=== PATIENT | male | born 1985 | race Caucasian/White ===

== ENCOUNTER 2016-07-03 20:10 | Emergency (ER) | payer BC ==
[2016-07-03 21:00] VITALS: BP 135/84
--- NOTE | 2016-07-03 21:54 | UC ---
Throat Pain/Nasal Lucas HPI - HPI Summary HPI Summary: Pt c/o cough , generalized malaise, fever, chills, and sore throat X 3 weeks. Pt did not get a flu vaccine this year. - History of Current Complaint Chief Complaint: UCGeneralIllness Stated Complaint: CONGESTION/EAR PAIN/SINUS Time Seen by Provider: 07/03/16 21:30 Hx Obtained From: Patient Onset/Duration: Gradual Onset, Lasting Weeks - 3 weeks Severity: Mild Associated Signs & Symptoms: Positive: Dysphagia, Fever - Epiglottits Risk Factors Epiglottis Risk Factors: Negative - Allergies/Home Medications Allergies/Adverse Reactions: Allergies Allergy/AdvReac Type Severity Reaction Status Date / Time No Known Allergies Allergy Verified 07/03/16 20:54 Home Medications: Home Medications [id number] W/ APAP [Tylenol Cold & Flu Severe [id number] mg] 2 tab PO Q4HR PRN 07/03/16 [History Confirmed 07/03/16] PMH/Surg Hx/FS Hx/Imm Hx Previously Healthy: Yes - Surgical History Surgical History: None - Family History Known Family History: Positive: Other - positive for FMH URI - Social History 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 Alcohol Use: Occasionally Substance Use Type: None Smoking Status (MU): Never Smoked Tobacco Household Exposure Type: Cigars - Immunization History Most Recent Influenza Vaccination: Not UTD Review of Systems Constitutional: Fever, Chills, Fatigue Skin: Negative Eyes: Negative ENT: Sore Throat Respiratory: Cough Cardiovascular: Negative Gastrointestinal: Negative Genitourinary: Negative Motor: Negative Neurovascular: Negative Musculoskeletal: Myalgia Neurological: Negative Psychological: Negative All Other Systems Reviewed And Are Negative: Yes Physical Exam Triage Information Reviewed: Yes Appearance: Well-Appearing Vital Signs: Initial Vital Signs Temp 100.0 F 07/03/16 20:55 Pulse 80 07/03/16 20:55 Resp 18 07/03/16 20:55 BP 135/84 07/03/16 20:55 Pulse Ox 98 07/03/16 20:55 Vital Signs Reviewed: Yes Eye Exam: Normal ENT Exam: Other ENT: Positive: Tonsillar swelling, Tonsillar exudate Neck exam: Normal Respiratory Exam: Normal Cardiovascular Exam: Normal Musculoskeletal Exam: Normal Neurological Exam: Normal Psychological Exam: Normal Skin Exam: Normal Throat Pain/Nasal Course/Dx - Differential Dx/Diagnosis Differential Diagnosis/HQI/PQRI: Influenza, Tonsillitis, URI Provider Diagnoses: tonsillitis Discharge - Discharge Plan Condition: Stable Disposition: HOME Prescriptions: Penicillin VK TAB 500 MG(NF) [Penicillin VK 500 mg Tab(NF)] 500 mg PO Q8HR #30 tab Patient Education Materials: Tonsillitis (ED) Referrals: [facility] [Outside] - If Needed No Primary Care Phys,NOPCP [Primary Care Provider] - Additional Instructions: Please follow up with your PCP or return to clinic as needed.
[2016-07-03] MEDS ORDERED: Penicillin VK LIQ* 250 MG/5 ML BTL PO ONE (21:59)
[2016-07-03] MEDS ORDERED: Penicillin VK TAB* 250 MG PO ONE (22:05)
== END 2016-07-03 22:11 | disposition home or self-care (01) ==
LOC: UCCORT 20:10
DX: J03.90 Acute tonsillitis, unspecified (principal); Z77.22 Contact with and (suspected) exposure to environmental tobacco smoke (acute) (chronic)
CPT/HCPCS: 87651; 99202; A9270-GY; G0463

== ENCOUNTER 2017-11-16 15:49 | Emergency (ER) | payer BC ==
[2017-11-16 16:11] VITALS: BP 132/74
--- NOTE | 2017-11-16 16:31 | UC ---
Ear Complaint HPI - HPI Summary HPI Summary: 32 year old male presents with onset of fever, chills, general malaise, and body aches 3 days ago. Gradually developed nasal congestion, nasal discharge, post-nasal drip, and sore throat. States fever and chills subsided but today developed left ear pain and fullness. Denies CP, SOB, abdominal pain, nausea, vomiting, or diarrhea. - History of Current Complaint Chief Complaint: UCGeneralIllness Stated Complaint: CONGESTION/EAR COMPLAINT Time Seen by Provider: 11/16/17 15:59 Hx Obtained From: Patient Onset/Duration: Gradual Onset, Lasting Days - 3 Severity Initially: Mild Severity Currently: Moderate Pain Intensity: 5 Aggravating Factors: Nothing Alleviating Factors: Nothing - Allergies/Home Medications Allergies/Adverse Reactions: Allergies Allergy/AdvReac Type Severity Reaction Status Date / Time No Known Allergies Allergy Verified 11/16/17 16:12 PMH/Surg Hx/FS Hx/Imm Hx Previously Healthy: Yes - Surgical History Surgical History: Yes - Tonsilectomy age 22 - Family History Known Family History: Positive: Other - noncontributory - Social History Occupation: Employed Full-time Lives: With Family Alcohol Use: Occasionally Substance Use Type: None Smoking Status (MU): Never Smoked Tobacco Household Exposure Type: Cigars - Immunization History Most Recent Influenza Vaccination: Not UTD Review of Systems Constitutional: Fever, Chills, Fatigue Skin: Negative Eyes: Negative ENT: Sore Throat, Ear Ache, Nasal Discharge, Sinus Congestion, Sinus Pain/ Tenderness Cardiovascular: Negative Gastrointestinal: Negative Is Patient Immunocompromised?: No All Other Systems Reviewed And Are Negative: Yes Physical Exam Triage Information Reviewed: Yes Appearance: Well-Appearing, No Pain Distress, Well-Nourished Vital Signs: Initial Vital Signs Temp 97.8 F 11/16/17 16:07 Pulse 63 11/16/17 16:07 Resp 16 11/16/17 16:07 BP 132/74 11/16/17 16:07 Pulse Ox 99 11/16/17 16:07 Eyes: Positive: Conjunctiva Clear ENT: Positive: Pharyngeal erythema - Mild with post-nasal drainage, Nasal congestion, Nasal drainage, TM red - Left with moderate effussion, Uvula midline , Other - Tonsils surgically absent Neck: Positive: Supple, Nontender, No Lymphadenopathy Respiratory: Positive: Lungs clear, Normal breath sounds, No respiratory distress Cardiovascular: Positive: RRR, No Murmur Skin Exam: Normal Ear Complaint Course/Dx - Course Course Of Treatment: 32 year old male with onset of URI symptoms 3 days ago who developed left ear pain and fullness today. Exam revealed left otitis media with effusion. Will treat with amoxicillin 875 mg BID x 10 day, supportive care including rest, fluids, nasal rinses, fluticasone nasal spray, OTC decongestant and pain medication. Patient verbalizes understanding and agrees with POC. - Differential Dx/Diagnosis Provider Diagnoses: Left otitis media, URI Discharge - Sign-Out/Discharge Documenting (check all that apply): Patient Departure - Discharge Plan Condition: Stable Disposition: HOME Prescriptions: Amoxicillin PO (*) [Amoxicillin 875 MG (*)] 875 mg PO BID #20 tab Fluticasone NASAL SPRAY 50MCG* [Flonase NASAL SPRAY 50MCG*] 2 spray BOTH NARES DAILY #1 btl Patient Education Materials: Ear Infection (ED), Upper Respiratory Infection ( ED) Referrals: No Primary Care Phys,NOPCP [Primary Care Provider] - Additional Instructions: Start amoxicillin 875 mg every 12 hours for 10 days for the ear infection. Take with food to help reduce upset stomach. Be sure to finish the entire course even if you are feeling well. Use an over the counter decongestant such as Sudafed according to directions to help reduce congestion. Start fluticasone (Flonase) 2 sprays each nostril to reduce inflammation and promote drainage. Use a saline rinse such as Neti Pot to help thin and remove secretions. Use over the counter acetaminophen (Tylenol) or ibuprofen (Advil, Motrin) as needed for pain or fever. Return or follow up with primary care provider in 1 week if no improvement in symptoms. - Billing Disposition and Condition Condition: STABLE Disposition: Home
== END 2017-11-16 16:37 | disposition home or self-care (01) ==
LOC: UCCORT 15:49
DX: H66.92 Otitis media, unspecified, left ear (principal); J06.9 Acute upper respiratory infection, unspecified; Z77.22 Contact with and (suspected) exposure to environmental tobacco smoke (acute) (chronic)
CPT/HCPCS: 99212; G0463

== ENCOUNTER 2018-12-14 07:19 | Emergency (ER) | payer BC ==
[2018-12-14 07:33] VITALS: BP 122/74
--- NOTE | 2018-12-14 08:02 | UC ---
Throat Pain/Nasal Lucas HPI - HPI Summary HPI Summary: sore throat x 2 days pain is 7 out of 10 , worse with eating , better with NPO / Tylenol + fever, chills, body aches no cough, no runny nose - History of Current Complaint Chief Complaint: UCGeneralIllness Stated Complaint: BODYACHES,CHILLS,THROAT COMPLAINT Time Seen by Provider: 12/14/18 07:25 Hx Obtained From: Patient Onset/Duration: Gradual Onset, Lasting Days - 2, Still Present Severity: Moderate Pain Intensity: 5 Pain Scale Used: 0-10 Numeric Cough: None Associated Signs & Symptoms: Positive: Fever. Negative: Dysphagia, FB Sensation , Drooling, Wheezing, Hoarseness, Sinus Discomfort, Nasal Discharge, Vomiting, Rash - Allergies/Home Medications Allergies/Adverse Reactions: Allergies Allergy/AdvReac Type Severity Reaction Status Date / Time No Known Allergies Allergy Verified 12/14/18 07:35 Home Medications: Home Medications Ibuprofen TAB* [Motrin TAB* 600 MG] 600 mg PO Q6H PRN 12/14/18 [History Confirmed 12/14/18] PMH/Surg Hx/FS Hx/Imm Hx Previously Healthy: Yes - Surgical History Surgical History: None - Family History Known Family History: Positive: Other - noncontributory - Social History Alcohol Use: Occasionally Substance Use Type: None Smoking Status (MU): Never Smoked Tobacco Household Exposure Type: Cigars - Immunization History Most Recent Influenza Vaccination: Not UTD Review of Systems All Other Systems Reviewed And Are Negative: Yes Constitutional: Positive: Fever, Chills, Fatigue Skin: Positive: Negative Eyes: Positive: Negative ENT: Positive: Sore Throat. Negative: Dental Pain, Ear Ache, Nasal Discharge, Sinus Congestion, Sinus Pain/Tenderness Respiratory: Positive: Negative. Negative: Cough Is Patient Immunocompromised?: No Physical Exam Triage Information Reviewed: Yes Appearance: Well-Appearing, No Pain Distress, Well-Nourished Vital Signs: Initial Vital Signs Temp 101.7 F 12/14/18 07:29 Pulse 102 12/14/18 07:29 Resp 19 12/14/18 07:29 BP 122/74 12/14/18 07:29 Pulse Ox 100 12/14/18 07:29 Vital Signs Reviewed: Yes Eye Exam: Normal Eyes: Positive: Conjunctiva Clear ENT: Positive: Pharyngeal erythema, TMs normal, Tonsillar swelling, Tonsillar exudate. Negative: Nasal congestion, Nasal drainage, TM bulging, TM dull, TM red, Trismus Neck: Positive: Supple, Tenderness @, Enlarged Nodes @ Respiratory: Positive: Chest non-tender, Lungs clear, Normal breath sounds, No respiratory distress Cardiovascular: Positive: Tachycardia Abdominal Exam: Normal Abdomen Description: Positive: No Organomegaly Throat Pain/Nasal Course/Dx - Differential Dx/Diagnosis Provider Diagnosis: Strep pharyngitis Discharge ED - Sign-Out/Discharge Documenting (check all that apply): Patient Departure All imaging exams completed and their final reports reviewed: No Studies - Discharge Plan Condition: Stable Disposition: HOME Prescriptions: Amoxicillin PO (*) [Amoxicillin 875 MG (*)] 875 mg PO BID #20 tab Patient Education Materials: Strep Throat (ED) Referrals: No Primary Care Phys,NOPCP [Primary Care Provider] - If Needed - Billing Disposition and Condition Condition: STABLE Disposition: Home
== END 2018-12-14 07:57 | disposition home or self-care (01) ==
LOC: UCCORT 07:19
DX: J02.0 Streptococcal pharyngitis (principal)
CPT/HCPCS: 87651; 99212; G0463